=== PATIENT | female | born 1950 | race Caucasian/White ===

== ENCOUNTER 2018-11-21 19:23 | Emergency (ER) | payer MEDICARE, BC ==
[2018-11-21 19:44] VITALS: BP 104/65
--- NOTE | 2018-11-21 19:53 | UC ---
Eye Complaint HPI - HPI Summary HPI Summary: Started with URI symptoms 3 days ago. Now having left eye discharge and itching. 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 - History of Current Complaint Chief Complaint: UCEye Stated Complaint: PINK EYE LEFT EYE Time Seen by Provider: 11/21/18 19:44 Hx Obtained From: Patient Onset/Duration: Sudden Onset, Lasting Days - 3, Worse Since - yesterday Timing: Constant Severity Initially: Mild Severity Currently: Moderate Pain Intensity: 0 Location of Injury: Conjunctiva - redness with purulent discharge Character: Foreign Body Sensation Aggravating Factor(s): Blinking Alleviating Factor(s): Nothing Associated Signs And Symptoms: Positive: Drainage (Purulent) Related History: Meds/Drops Used: - OTC antihistamines and OTC eye wash. - Allergies/Home Medications Allergies/Adverse Reactions: Allergies Allergy/AdvReac Type Severity Reaction Status Date / Time meperidine [From Demerol] Allergy Altered Verified 11/21/18 19:34 Mental Status Home Medications: Home Medications Canagliflozin (NF) [Invokana (NF)] 1 tab DAILY 11/21/18 [History Confirmed 11/21] Clopidogrel TAB* [Plavix TAB*] 1 tab DAILY 11/21/18 [History Confirmed 11/21/18] Furosemide TAB* [Lasix TAB*] 1 tab DAILY 11/21/18 [History Confirmed 11/21/18] Quinapril HCl [Accupril] 1 tab BID 11/21/18 [History Confirmed 11/21/18] Sitagliptin Phosphate [Januvia] 1 tab DAILY 11/21/18 [History Confirmed 11/21/18 ] Tiotropium CAP.INH (NF) [Spiriva CAP.INH*] 1 cap DAILY 11/21/18 [History Confirmed 11/21/18] buPROPion TAB* [Wellbutrin TAB*] 1 tab BID 11/21/18 [History Confirmed 11/21/18] metFORMIN* [Glucophage 500 MG TAB *] 2 tab BID 11/21/18 [History Confirmed 11/21] PMH/Surg Hx/FS Hx/Imm Hx Endocrine History: Diabetes Cardiovascular History: Hypertension Respiratory History: COPD Neurological History: CVA - Surgical History Surgical History: Yes Surgery Procedure, Year, and Place: Gastric bypass. Tonsilectomy - Family History Known Family History: Positive: Hypertension - Social History Occupation: Employed Full-time Lives: Alone Alcohol Use: Occasionally Substance Use Type: None Smoking Status (MU): Never Smoked Tobacco Review of Systems All Other Systems Reviewed And Are Negative: Yes Constitutional: Positive: Chills Eyes: Positive: Drainage, Eye Redness ENT: Positive: Sore Throat, Nasal Discharge, Sinus Congestion Respiratory: Positive: Cough Is Patient Immunocompromised?: No Physical Exam Triage Information Reviewed: Yes Appearance: Ill-Appearing, Obese Vital Signs: Initial Vital Signs Temp 98.7 F 11/21/18 19:37 Pulse 89 11/21/18 19:37 Resp 16 11/21/18 19:37 BP 104/65 11/21/18 19:37 Pulse Ox 96 11/21/18 19:37 Vital Signs Reviewed: Yes Eyes: Positive: Conjunctiva Inflamed - OU OS>OD, Discharge - OS with purulent discharge ENT: Positive: Pharynx normal, Nasal congestion, TMs normal Neck exam: Normal Respiratory Exam: Normal Musculoskeletal Exam: Normal Neurological Exam: Normal Psychological Exam: Normal Skin Exam: Normal Eye Complaint Course/Dx - Differential Dx/Diagnosis Differential Diagnosis/HQI/PQRI: Conjunctivitis, Orbital Cellulitis, Uveitis Provider Diagnosis: Upper respiratory infection, Conjunctivitis due to adenovirus, left eye Discharge ED - Sign-Out/Discharge Documenting (check all that apply): Patient Departure All imaging exams completed and their final reports reviewed: No Studies - Discharge Plan Condition: Stable Disposition: HOME Prescriptions: Erythromycin OPTH OINT* [Erythromycin 0.5% OPTH OINT*] 1 applic LEFT EYE TID # 3.5 gm Patient Education Materials: Conjunctivitis (ED), Erythromycin (Into the eye), Upper Respiratory Infection (ED) Referrals: Cooper Patel MD [Primary Care Provider] - - Billing Disposition and Condition Condition: STABLE Disposition: Home
[2018-11-21] MEDS ORDERED: Erythromycin OPTH OINT* APPLIC OINT LEFT EYE ONE (19:59)
== END 2018-11-21 20:10 | disposition home or self-care (01) ==
LOC: UCCORT 19:23
DX: J06.9 Acute upper respiratory infection, unspecified (principal); B30.1 Conjunctivitis due to adenovirus; Z88.5 Allergy status to narcotic agent; E11.9 Type 2 diabetes mellitus without complications; Z79.84 Long term (current) use of oral hypoglycemic drugs; I10 Essential (primary) hypertension; Z86.73 Personal history of transient ischemic attack (TIA), and cerebral infarction without residual deficits; J44.9 Chronic obstructive pulmonary disease, unspecified
CPT/HCPCS: 99202; A9270-GY; G0463

== ENCOUNTER 2023-12-31 21:57 | Inpatient (IN) ==
[2023-12-31 23:33] LABS: ABS Eosinophils 0.1 10^3/uL (0.0-0.5); ABS Lymphocytes 0.8 10^3/uL (1.0-4.8); ABS Monocytes 0.3 10^3/uL (0.0-0.9); ABS Neutrophils 2.2 10^3/uL (1.5-7.6); Eosinophil % 4.1 %; Hemoglobin 10.8 g/dL (11.5-14.3); Lymphocyte % 24.2 %; Mean Corpuscular Hemoglobin 29.3 pg (27-33); Mean Corpuscular Hgb Conc 32.8 g/dL (31-36); Mean Corpuscular Volume 89.5 fL (80-97); Mean Platelet Volume 7.3 fL (7.5-11.2); Nucleated Red Blood Cells % 0.1 %/100WBC (0.0-0.8); Platelet Count 168 10^3/uL (150-450); Red Blood Count 3.69 10^6/uL (3.63-4.92); Red Cell Distribution Width 17.5 % (12-17); White Blood Count 3.5 10^3/uL (3.8-11.8)
[2023-12-31] MEDS: Piperacillin/Tazobac 3.375 BAG 3.375 GM/100 ML BAG IV ONE (23:36)
[2023-12-31 23:49] LABS: Activated Partial Thrombo Time 26.6 seconds (26.0-38.0); INR 0.99 (0.85-1.14)
[2024-01-01] MEDS ORDERED: Polyethylene Glycol 3350 17 GM PACKET PO PRN (00:14)
[2024-01-01] MEDS ORDERED: Senna TAB 8.6 mg TAB PO PRN (00:14)
[2024-01-01 00:18] LABS: Albumin 3.8 g/dL (3.2-5.2); Albumin/Globulin Ratio 1.7 (1-3); C Reactive Protein 85.1 mg/L (<8.01); Calcium 8.6 mg/dL (8.6-10.3); Creatinine, Serum 2.99 mg/dL (0.51-0.95); Globulin 2.3 g/dL (2-4); Potassium 4.2 mmol/L (3.5-5.0); Total Bilirubin 0.6 mg/dL (0.2-1.0); Total Protein 6.1 g/dL (6.4-8.9)
[2024-01-01] MEDS ORDERED: Albuterol HFA INHALER 8 gm MDI INH PRN (00:27)
[2024-01-01] MEDS ORDERED: POLYVINYL ALCOHOL 1.4% BOTH EYES PRN (00:27)
[2024-01-01] MEDS: Vancomycin 1,250 MG in NS 0.9% 250 ml 250 ML IVPB ONE (00:35)
[2024-01-01 01:10] LABS: High Sensitivity Troponin 1 Hr 28 pg/mL (<15)
[2024-01-01] MEDS: Heparin 5000 UNITS/ML 1 mL VIAL SUBCUT SCH (06:13)
[2024-01-01] MEDS: SPIRIVA Respimat (tiotropium) 2.5 mcg/inh Inhaler INH SCH (07:16)
[2024-01-01] MEDS: SitaGLIPtin 25mg TAB (NF) 25 MG TAB PO SCH (08:42)
[2024-01-01] MEDS: cefTRIAXone 1 gm/50 mL D5W 1 GM/50 ML BAG IV SCH (08:43)
[2024-01-01] MEDS ORDERED: Albumin Human 25% 25 GM/100 ML BTL IV PRN (12:09)
[2024-01-01] MEDS ORDERED: NS 0.9% 1000 ml BAG 200 ML IV PRN (12:09)
[2024-01-01] MEDS ORDERED: NS 0.9% 1000 ml BAG 100 ML IV PRN (12:09)
[2024-01-01 14:51] LABS: Hepatitis B Surface Ab Indeterminate (Immune)
[2024-01-01 17:32] LABS: Urine Appearance Turbid; Urine Bilirubin Negative (Negative); Urine Blood Trace (Negative); Urine Color Yellow; Urine Glucose Negative (Negative); Urine Ketones Negative (Negative); Urine Nitrite Negative (Negative); Urine Protein 1+ (>=30 mg/dL) (Negative); Urine Specific Gravity 1.012 (1.002-1.030); Urine Urobilinogen Negative (Negative); Urine pH 6.5 (5.0-8.0)
[2024-01-01 17:37] LABS: Urine Bacteria 1+ /HPF (Absent); Urine Red Blood Cell 2+(6-10/hpf) /HPF (0-Trace); Urine Renal Epithelial Cells Present /HPF (Absent); Urine Squamous Epithelial Cell Present /HPF (Absent); Urine Transitional Epithelial Present /HPF (Absent); Urine White Blood Cell 3+(>20/hpf) /HPF (0-Trace)
[2024-01-01 20:19] LABS: Hepatitis B Surface Antigen Nonreactive (Nonreactive)
[2024-01-02] MEDS: Heparin 1,000 UNIT/ML 10 ml (10,000 UNITS) CATHLAB/DIALYSIS DIALYSIS PRN (09:55)
[2024-01-02 10:10] LABS: Hematocrit 30.9 % (35-45); Hemoglobin 10.1 g/dL (11.5-14.3); Mean Corpuscular Hemoglobin 29.3 pg (27-33); Mean Corpuscular Hgb Conc 32.8 g/dL (31-36); Mean Corpuscular Volume 89.2 fL (80-97); Mean Platelet Volume 7.6 fL (7.5-11.2); Platelet Count 160 10^3/uL (150-450); Red Blood Count 3.47 10^6/uL (3.63-4.92); Red Cell Distribution Width 17.6 % (12-17); White Blood Count 4.1 10^3/uL (3.8-11.8)
[2024-01-02 10:27] LABS: Calcium 7.9 mg/dL (8.6-10.3); Creatinine, Serum 4.43 mg/dL (0.51-0.95); Potassium 4.3 mmol/L (3.5-5.0)
[2024-01-02 10:39] LABS: ABS Eosinophils 0.2 10^3/uL (0.0-0.5); ABS Lymphocytes 1.1 10^3/uL (1.0-4.8); ABS Monocytes 0.5 10^3/uL (0.0-0.9); ABS Neutrophils 2.2 10^3/uL (1.5-7.6); Anisocytosis 1+; Eosinophil % 4.7 %; Lymphocyte % 26.7 %; Polychromasia 1+
[2024-01-02] MEDS: Dextrose 50% Syringe 50 ml 25 GM/50 ML SYRINGE IV PUSH PRN (15:06)
[2024-01-02] MEDS: Glucose ORAL 15 GM TUBE PO ONE (15:28)
[2024-01-02 17:24] LABS: Hematocrit 25.2 % (35-45); Hemoglobin 8.4 g/dL (11.5-14.3); Mean Corpuscular Hemoglobin 29.7 pg (27-33); Mean Corpuscular Hgb Conc 33.5 g/dL (31-36); Mean Corpuscular Volume 88.8 fL (80-97); Mean Platelet Volume 7.7 fL (7.5-11.2); Platelet Count 170 10^3/uL (150-450); Red Blood Count 2.83 10^6/uL (3.63-4.92); Red Cell Distribution Width 17.4 % (12-17); White Blood Count 5.2 10^3/uL (3.8-11.8)
[2024-01-02 18:03] LABS: Albumin 3.3 g/dL (3.2-5.2); Albumin/Globulin Ratio 1.5 (1-3); Calcium 8.1 mg/dL (8.6-10.3); Creatinine, Serum 2.6 mg/dL (0.51-0.95); Globulin 2.2 g/dL (2-4); Magnesium 1.6 mg/dL (1.9-2.7); Phosphorus 2.2 mg/dL (2.5-5.0); Potassium 3.6 mmol/L (3.5-5.0); Total Bilirubin 0.3 mg/dL (0.2-1.0); Total Protein 5.5 g/dL (6.4-8.9); eGFR CKD-EPI 18.9 (>60)
[2024-01-02 18:13] LABS: ABS Basophils 0.1 10^3/uL (0.0-0.1); ABS Eosinophils 0.2 10^3/uL (0.0-0.5); ABS Monocytes 0.3 10^3/uL (0.0-0.9); ABS Neutrophils 3.6 10^3/uL (1.5-7.6); Anisocytosis 1+; Eosinophil % 3.8 %; Nucleated Red Blood Cells % 0.1 %/100WBC (0.0-0.8); Polychromasia 1+
[2024-01-03 09:27] VITALS: BP 101/55
[2024-01-04 16:39] LABS: Anaplasma phagocytophilum Negative (Negative); B. miyamotoi PCR, B Negative (Negative); Babesia divergens/MO-1 Negative (Negative); Babesia ducani Negative (Negative); Ehrlichia chaffeensis Negative (Negative); Ehrlichia ewingii/canis Negative (Negative); Ehrlichia muris eauclairensis Negative (Negative)
== END 2024-01-03 14:03 | disposition home or self-care (01) | DRG 689 ==
LOC: ED 21:57 → EDHOLD 01-01 00:14 → SUATTDRO 01-01 00:14 → MEDTELE 01-01 01:30
PROVIDERS: ADMIT Internal Medicine; ATTEND Student in an Organized Health Care Education/Training Program